=== PATIENT | male | born 1945 | race Caucasian/White ===

== ENCOUNTER 2018-05-07 00:17 | Emergency (ER) | payer OTHER, MEDICAID ==
[~2018-05-07] VITALS: Ht 177.8 cm; Wt 97.1 kg
[2018-05-07 00:35] VITALS: Ht 177.8 cm; Wt 97.1 kg
[2018-05-07 01:23] LABS: PLATELET COUNT 325 x10^3mcL (130-400); RED CELL DISTRIBUTION WIDTH 12.9 % (11.5-14.5)
[2018-05-07 01:24] LABS: BASOPHIL % 2.7 % (0-2)
[2018-05-07 02:15] LABS: CALCIUM 8.3 mg/dL (8.5-10.1); CARBON DIOXIDE 20.8 mmol/L (21-32); CHLORIDE SERUM 101 mmol/L (98-107); CREATININE SERUM 0.9 mg/dL (0.7-1.3); GLUCOSE SERUM 156 mg/dL (74-106); POTASSIUM SERUM 3.6 mmol/L (3.5-5.1); SODIUM SERUM 137 mmol/L (136-145)
[2018-05-07 02:20] LABS: ALKALINE PHOSPHATASE 96 U/L (46-116); ALT/SGPT 32 U/L (16-63); AST/SGOT 33 U/L (15-37); BILIRUBIN TOTAL 0.3 mg/dL (0.20-1.00)
[2018-05-07 02:28] LABS: TOTAL PROTEIN, SERUM 8.7 g/dL (6.4-8.2)
[2018-05-07 03:25] VITALS: BP 113/58
== END 2018-05-07 03:25 | disposition home or self-care (01) ==
LOC: ED 00:17
PROVIDERS: Emergency Medicine
DX: T40.2X1A Poisoning by other opioids, accidental (unintentional), initial encounter (principal); Y92.89 Other specified places as the place of occurrence of the external cause; Z88.5 Allergy status to narcotic agent
CPT/HCPCS: G0480; J2310; J2765; Q0162